=== PATIENT | female | born 1965 | race Caucasian/White ===

== ENCOUNTER 2023-03-15 14:39 | Emergency (ER) | payer MEDICAID ==
[~2023-03-15] VITALS: Ht 157.5 cm; Wt 75.0 kg
[2023-03-15 14:45] VITALS: BP 115/72
[2023-03-15] MEDS ORDERED: IBUP800T27 PO (16:57)
[2023-03-15] MEDS ORDERED: HYDROcodone-ACET 5/325MG TAB PO ONE (17:00)
== END 2023-03-15 17:17 | disposition home or self-care (01) ==
LOC: ER 14:39 → EDBD 14:39 → EDUNIT# 14:39 → ER 17:17
DX: S76.011A Strain of muscle, fascia and tendon of right hip, initial encounter (principal); M19.19 Post-traumatic osteoarthritis, other specified site; J45.909 Unspecified asthma, uncomplicated; K21.9 Gastro-esophageal reflux disease without esophagitis; I10 Essential (primary) hypertension; F17.210 Nicotine dependence, cigarettes, uncomplicated; F15.90 Other stimulant use, unspecified, uncomplicated; Z88.2 Allergy status to sulfonamides; Z88.0 Allergy status to penicillin; W01.0XXA Fall on same level from slipping, tripping and stumbling without subsequent striking against object, initial encounter; Y93.89 Activity, other specified; Y92.89 Other specified places as the place of occurrence of the external cause; Y99.8 Other external cause status
CPT/HCPCS: 73502; 73562